=== PATIENT | female | born 1975 | race Caucasian/White ===

== ENCOUNTER 2017-01-28 10:41 | Emergency (ER) | payer BC ==
[~2017-01-28] VITALS: Ht 170.2 cm; Wt 113.6 kg
[2017-01-28 10:46] VITALS: TEMP 98.8
[2017-01-28 11:45] VITALS: BP 137/91; PULSE 81
== END 2017-01-28 11:47 | disposition home or self-care (01) ==
LOC: COL.ER 10:41
DX: S09.90XA Unspecified injury of head, initial encounter (principal); W01.198A Fall on same level from slipping, tripping and stumbling with subsequent striking against other object, initial encounter; S00.03XA Contusion of scalp, initial encounter; M54.2 Cervicalgia; M85.80 Other specified disorders of bone density and structure, unspecified site; R40.2362 Coma scale, best motor response, obeys commands, at arrival to emergency department; R40.2142 Coma scale, eyes open, spontaneous, at arrival to emergency department; R40.2252 Coma scale, best verbal response, oriented, at arrival to emergency department

== ENCOUNTER → 2018-11-16 | Outpatient (CLI) | payer OTHER ==
[2005-12-04 07:30] VITALS: PULSE 80; TEMP 97
== END ==
LOC: MC.RAD 13:49
DX: Z12.31 Encounter for screening mammogram for malignant neoplasm of breast (principal)

== ENCOUNTER → 2024-02-09 | Outpatient (CLI) | payer BC ==
[2005-12-04 07:30] VITALS: PULSE 80; TEMP 97
== END ==
LOC: MC.RAD 09:00
DX: Z12.31 Encounter for screening mammogram for malignant neoplasm of breast (principal)

== ENCOUNTER 2024-06-15 22:04 | Day surgery (SDC) | payer BC ==
[~2024-06-15] VITALS: Ht 167.6 cm; Wt 116.5 kg
[2024-06-15] MEDS ORDERED: Ondansetron 4 MG/2 ML VIAL IV ONE (23:30)
[2024-06-15] MEDS ORDERED: NS 1,000 ML IV ONE (23:30)
[2024-06-15 23:44] LABS: BASO % 0.3 % (0.0-2.0); EOS # 0.2 K/mm3 (0.0-0.7); EOS % 1.9 % (0.0-4.0); GRAN # 8.7 K/mm3 (1.4-6.5); HEMATOCRIT 42.1 % (37.0-47.0); HEMOGLOBIN 14.3 g/dl (12.5-16.0); LYMPH # 1.3 K/mm3 (1.2-3.4); LYMPH % 12.1 % (20.0-51.0); MEAN CELL VOLUME 91 fl (80.0-100.0); MEAN CORPUSCULAR HEMOGLOBIN 31 pg (27-31); MEAN CORPUSCULAR HGB CONC 34 g/dl (33.0-37.0); MEAN PLATELET VOLUME 8.8 fl (7.4-10.4); MONO # 0.4 K/mm3 (0.1-0.6); MONO % 3.4 % (1.7-9.3); PLATELET COUNT 244 K/mm3 (130-400); RED BLOOD COUNT 4.64 M/mm3 (4.10-5.30); REDCELL DISTRIBUTION WIDTH-CV 12.2 % (11.5-14.5)
[2024-06-15 23:58] LABS: ALANINE AMINOTRANSFERASE 32 U/L (0-55); ALBUMIN 3.9 g/dL (3.5-5.0); ALKALINE PHOSPHATASE 92 U/L (40-150); ANION GAP 12 mmol/L (7-16); AST,SGOT 29 U/L (5-34); BILIRUBIN,TOTAL 0.6 mg/dL (0.2-1.2); BLOOD UREA NITROGEN 11 mg/dL (7-19); C-REACTIVE PROTEIN 3.84 mg/dL (0.00-0.50); CALCIUM 9.6 mg/dL (8.4-10.2); CHLORIDE 101 mEq/L (98-107); CREATININE, serum 0.85 mg/dL (0.57-1.11); GLUCOSE 140 mg/dL (70-99); LIPASE 17 U/L (8-78); POTASSIUM 3.7 mEq/L (3.5-4.5); SODIUM 137 mEq/L (136-145)
[2024-06-16] VITALS (16 sets, daily range): BP systolic 115–162; BP diastolic 64–84; PULSE 84–122; TEMP 97.2–101
[2024-06-16 00:04] LABS: TROPONIN-I < 0.010 ng/mL (0.00-0.033)
[2024-06-16 00:32] LABS: COLLECTION METHOD CLEAN CATCH
[2024-06-16 00:38] LABS: PH 6.5 (5.0-8.5); URINE APPEARANCE CLEAR (CLEAR/HAZY); URINE BLOOD 1+ (NEGATIVE); URINE COLOR YELLOW (YELLOW); URINE GLUCOSE NEGATIVE (NEGATIVE); URINE KETONE NEGATIVE (NEGATIVE); URINE NITRATE POSITIVE (NEGATIVE); URINE PROTEIN(semi-quant) TRACE (NEGATIVE); URINE UROBILINOGEN 0.2 E.U/dL (0.2-1.0)
[2024-06-16] MEDS ORDERED: Ketorolac 30 MG/ML VIAL IV ONE ×3 (00:45→14:30)
[2024-06-16] MEDS ORDERED: Iohexol 300 - 100 ML VIAL IV ONE (00:54)
[2024-06-16] MEDS ORDERED: NS 100 ML IV ONE (00:55)
[2024-06-16] MEDS ORDERED: cefTRIAXone 1 G in Water For Injection,Sterile 10 ML IV ONE (01:15)
[2024-06-16] MEDS ORDERED: NS 1,000 ML IV ONE (01:15)
[2024-06-16] MEDS ORDERED: Ondansetron 4 MG/2 ML VIAL IV PRN ×2 (02:15→17:00)
[2024-06-16] MEDS ORDERED: NS 1,000 ML IV SCH (02:15)
--- NOTE | 2024-06-16 03:50 | NUR ---
PATIENT ADMITTED TO ROOM 307 BROUGHT FROM ED BY ED-RN. PATIENT VS ARE:BP 115/65, 91% ON RA, 122 PULSE, 99.8,TEMP ORAL AND 18 RR. PATIENT IS AXO X4 AND RATES PAIN 4/10. TOILET HAT IN PLACE TO STRAIN URINE. NS INFUSING IN RT AC-BOLUS. NO TELE IN PLACE. MEWS SCORE 3. CHARGE NURSE NOTIFIED AND EVANGELIDIS-ADMITTING DOCTOR NOTIFIED. TORB TO ADMINISTER 1000MG TYLENOL PO GIVEN AND TO MAINTAIN VS VIGILANCE. PATIENT ORIENTED TO ROOM.
[2024-06-16] MEDS ORDERED: Acetaminophen 500 MG TAB PO PRN (04:45)
--- NOTE | 2024-06-16 05:20 | NUR ---
STRAINED 300ML OF STEVE CLOUDY URINE, NO STONE, SMALL AMOUNT OF MUCUS NOTED.
--- NOTE | 2024-06-16 06:31 | NUR ---
LAB ALERTED THIS NURSE-PATIENT IS COVID POSITIVE. CALL PLACED TO EVANGELIDIS. ARAUJO TO ENSURE URINE IS CULTURED IN REGARDS TO KIDNEY STONE-LAB ORDERS PLACED. ORDERS TO MAINTAIN ISOLATION PRECAUTIONS GIVEN.
[2024-06-16] MEDS ORDERED: Meclizine 25 MG TAB PO SCH (07:45)
[2024-06-16] MEDS ORDERED: LR 1,000 ML IV SCH (07:45)
[2024-06-16] MEDS ORDERED: Famotidine 20 MG TAB PO SCH (07:45)
--- NOTE | 2024-06-16 08:37 | NUR ---
Patient resting in bed, alert and oriented x4, VSS. States pain is under control. Getting fluids per orders. Consents signed. NPO from [facility]N. Urine danish clear. LR hanging awaiting for procedure. No further needs at this time. Call light within reach.
[2024-06-16] MEDS ORDERED: Ketorolac 15 MG/ML VIAL IV SCH (09:00)
--- NOTE | 2024-06-16 13:00 | NUR ---
Call placed to Dr. Bautista to ask for additional pain meds, since patient is asking. For now Tylenol provided. In addition she would like yrte. Message left in 's phone number.
--- NOTE | 2024-06-16 15:46 | NUR ---
Patient is currently in isolation due to testing positive for COVID-19. SW contacted patient via telephone. Patient lives in [place] with her , Pawel, P# [phone]. PCP is Dr. Bo, Pharmacy is [facility]. No issues affording medications. Insurance is [facility] [place]. No DPOA-HC and not currently interested in completing one. No DME. Patient reports to be independent with ADLS and has a form of transportation to get to and from appointments. Patient would like to return home at time of discharge. Patient stated she will need a note to return to work from the doctor. Discharge plan: Home
[2024-06-16] MEDS ORDERED: fentaNYL 50 MCG/ML 2 ML VIAL ONE (16:46)
[2024-06-16] MEDS ORDERED: Lidocaine PF 2% (20 MG/ML) 5 ML VIAL ONE (16:47)
[2024-06-16] MEDS ORDERED: NS 10 ML IV ONE (16:47)
[2024-06-16] MEDS ORDERED: Ondansetron 4 MG/2 ML VIAL ONE (16:48)
[2024-06-16] MEDS ORDERED: Glycopyrrolate 0.2 MG/ML 1 ML VIAL ONE (16:48)
[2024-06-16] MEDS ORDERED: hydrALAZINE 20 MG/ML 1 ML VIAL IV PRN (17:00)
[2024-06-16] MEDS ORDERED: fentaNYL 50 MCG/ML 1 ML SYRINGE/VIAL [PACU/SDC ONLY] IV PRN (17:00)
[2024-06-16] MEDS ORDERED: HYDROmorphone 1 MG/1 ML SYRINGE [PACU/SDC ONLY] IV PRN (17:00)
[2024-06-16] MEDS ORDERED: droPERidol 2.5 MG/ML 2 ML VIAL IV PRN (17:00)
[2024-06-16] MEDS ORDERED: PYRIDIUM 100MG100 MG PO (17:57)
[2024-06-16] MEDS ORDERED: NORCO 325 MG-51 TAB PO (17:57)
[2024-06-16] MEDS ORDERED: Iohexol 350 - 100 ML VIAL URETER-R ONE (18:18)
--- NOTE | 2024-06-16 18:20 | NUR ---
Patient left for procedure.
[2024-06-16] MEDS ORDERED: Lidocaine 2% (20 MG/ML) 20 ML UROJET UR ONE (18:33)
--- NOTE | 2024-06-16 19:35 | NUR ---
Arrived from PACU -OR nurse with patient, report was given- pt states pain right flank/side 10 at this time but does not need meds at this time, slightly nauseated, does not want food but will drink some water- temp 99.6, otherwise VSS, IV fluids of LR infusing to R/AC. Up to bathroom with just standby assist -voiding red tinged urine ,,
--- NOTE | 2024-06-16 20:50 | NUR ---
Does have discharge orders for tonight - talked with patient, temp is consistently going up, now 100.3, flushed, still is slightly nauseated-not wanting food, is taking water, pt wants to know if she is getting antibiotics for her UTI,, Called Dr. Sanchez, informed of temp, nausea -states she will stay the night, started on antibiotics, also given order for Percocet and to contiue the NS at 125cc/hr and the Torodol IV every 8 hrs that was ordered pre-op- will give some Tylenol at this time , pt informed she is staying the night-- she is good with that.
[2024-06-16] MEDS ORDERED: oxyCODONE/Acetaminophen 5-325 MG TAB PO PRN (21:00)
--- NOTE | 2024-06-16 23:28 | NUR ---
will put on o2 ,, sats 89% on RA, encouraged C&DB, put on 2L/nc, temp has come down to 99.8, Toradol IV given as ordered, pt states R/sided pain now is 04/07
[2024-06-17] MEDS ORDERED: ceFAZolin 2 G in Water For Injection,Sterile 20 ML IV SCH (01:00)
[2024-06-17 01:15] VITALS: BP 132/74; PULSE 83; TEMP 98.2
[2024-06-17 01:19] VITALS: BP_SYST 131
[2024-06-17 04:12] VITALS: BP 146/78; PULSE 85; TEMP 99
[2024-06-17 05:01] VITALS: BP_SYST 146
--- NOTE | 2024-06-17 06:13 | NUR ---
Is sleeping soundly at this time,, did have a temp of 101.3 during the night, came down with Tylenol, was just given a percocet an hour ago for right side/flank pain of 7/10, also stated has the chills, feels her temp is going up again, Wants to talk to doctor about changing her antibiotic- feels she needs a different class of antibiotics.
[2024-06-17 07:30] VITALS: BP 152/93; PULSE 92; TEMP 98.2
--- NOTE | 2024-06-17 07:30 | NUR ---
PATIENT HAVING CONCERNS REGARDING HER ANTIBIOTIC ON ORDER. RN WILL PASS THIS CONCERN ALONG TO THE MD
--- NOTE | 2024-06-17 08:32 | NUR ---
DR CRYSTAL INFORMED PATIENT STAYED OVERNIGHT D/T AN ELEVATED TEMPERATURE OF 101.3. NEGRO WAS CALLED OVERNIGHT, IVF CONTINUED AND PATIENT WAS STARTED ON ANCEPH IV Q8H. HOWEVER, PER BHARATH SHE RECENTLY HAD A DOG BITE THAT SHE TOOK DOXY AND THEN KEFLEX FOR, HOWEVER DID NOT FEEL THIS WORKED. D/T TO THAT SHE FEELS ANCEPH IS THE INCORRECT DRUG CLASS FOR HER. PER DR CRYSTAL THE PATIETNS TEMPERATURE IS LIKELY D/T COVID, AND PATIENT CAN DC HOME WITH CURERNT DISCHARGE ORDERS.
[2024-06-17 09:00] VITALS: BP_SYST 152
--- NOTE | 2024-06-17 09:45 | NUR ---
PATIENT IV REMOVED. PATINET TOLERATED SOME OF BREAKFST, PAIN CONTROLLED WITH TORADOL, PATIEN TAWARE OF NEW MEDICAITONS AND POST CYSTO WITH ABLATION AND STENT INSTRUCTIONS. CALL LIGHT WITHIN REACH. 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
--- NOTE | 2024-06-17 10:00 | NUR ---
PATIENT ESCORTED TO ER ENTRANCE BY PCT WHERE SHE LEFT IN STABLE CONDITION. BHARATH LEFT IN THE CARE OF HER .
== END 2024-06-17 10:00 | disposition home or self-care (01) ==
LOC: COL.ER 22:04 → MEDICAL 06-16 01:57 → SDCO 06-16 01:57 → COL.ER 06-16 01:57 → MEDICAL 06-16 01:57 → SDCO 06-17 10:00 → MEDICAL 06-17 10:00
PROVIDERS: Emergency Medicine; Nurse Practitioner Primary Care
DX: N13.2 Hydronephrosis with renal and ureteral calculous obstruction (principal); N39.0 Urinary tract infection, site not specified; U07.1 COVID-19
CPT/HCPCS: OP; C1769; C1894; C2617; G0378; J0688; J0690; J0696; J1170; J1885; J2405; J2704; J3010; J7030; J7120; Q9967